=== PATIENT | female | born 1980 | race Caucasian/White ===

== ENCOUNTER 2017-08-28 08:48 | Day surgery (SDC) | payer OTHER ==
[2017-08-28] MEDS ORDERED: LIDOCAINE 4% SOLUTION 50 ML BTL (09:53)
[2017-08-28] MEDS ORDERED: FENTAnyl 50 MCG/ML VIAL (10:38)
[2017-08-28] MEDS ORDERED: MIDAZOLAM 1 MG/ML 2 ML INJ ×2 (10:38)
== END 2017-08-28 10:39 | disposition home or self-care (01) ==
LOC: GIL 08:48
DX: K64.4 Residual hemorrhoidal skin tags (principal); K21.0 Gastro-esophageal reflux disease with esophagitis
CPT/HCPCS: 43239; 84703; 88305; 88312; 88313